=== PATIENT | male | born 2000 | race Caucasian/White ===

== ENCOUNTER 2020-06-15 07:42 | Emergency (ER) | payer OTHER ==
[~2020-06-15] VITALS: Ht 167.6 cm; Wt 62.0 kg
[2020-06-15 07:59] VITALS: BP 143/85
[2020-06-15] MEDS ORDERED: SUMAtriptan SUCC 6 MG/0.5 ML VIAL SQ ONE (08:15)
--- NOTE | 2020-06-15 08:36 | PHYS DOC ---
Past History Past Medical History: Asthma Past Surgical History: No Surgical History Alcohol Use: None Adult General Chief Complaint Chief Complaint: SORE THROAT HPI HPI Patient is a 19-year-old previously healthy male who presents to the emergency room complaining of left-sided neck pain that radiates into his ear. He states that it hurts worse when he tries to do swallow. He is able to swallow and talk without difficulty. He denies any kind of fever. He states he felt normal yesterday. He had something similar happen last week but it went away on its own after a few hours. He denies any cough or runny nose. He does have a migraine. He states he gets these on occasion. He states that the headache is behind his eyes and feels like pressure. Review of Systems Review of Systems Complete ROS is negative unless otherwise documented in HPI Current Medications Current Medications Current Medications Medications (Trade) Dose Ordered Sig/Maxim Start Time Stop Time Status Last Admin Dose Admin Sumatriptan Succinate (Imitrex) 6 mg 1X ONCE 06/15/20 08:15 06/15/20 08:16 DC 06/15/20 08:13 6 MG Allergies Allergies Allergies Coded Allergies Type Severity Reaction Last Updated Verified No Known Drug Allergies 06/15/20 No Physical Exam Physical Exam General: Awake, alert, NAD. Well Nourished, well hydrated. Cooperative HEENT: Atraumatic, EOMI, PERRL, airway patent, moist oral mucosa, mild erythema to the oropharynx without exudates, TMs normal bilaterally Neck: Supple, trachea midline, single left lymph node with mild swelling Respiratory: CTA bilaterally, normal effort, no wheezing/crackles CV: RRR, no murmur, cap refill <2 GI: Soft, nondistended, nontender, no masses MSK: No obvious deformities Skin: Warm, dry, intact Neuro: A&O x3, speech NL, sensory and motor grossly intact, no focal deficits Psych: Normal affect, normal mood, not suicidal or homicidal Current Patient Data Vital Signs Vital Signs Date Time Temp Pulse Resp B/P (MAP) Pulse Ox O2 Delivery O2 Flow Rate FiO2 06/15/20 07:59 97.8 77 18 143/85 (104) 100 Room Air EKG EKG [] Radiology/Procedures Radiology/Procedures [] Heart Score Risk Factors: Risk Factors: DM, Current or recent (<one month) smoker, HTN, HLP, family history of CAD, obesity. Risk Scores: Risk Factors: DM, Current or recent (<one month) smoker, HTN, HLP, family history of CAD, obesity. Course & Med Decision Making Course & Med Decision Making Pertinent Labs and Imaging studies reviewed. (See chart for details) Patient is 19-year-old male who comes to the emergency room complaining of sore throat and pain. Patient has a lymph node that is swollen in the area of his p ain. Ear appears normal. He has some mild erythema in the back of his oropharynx. Strep swab will be done. Strep was negative. This is likely allergic, nature and patient will be placed on Zyrtec-D. Patient's test results and vitals while in the ED were fully reviewed and discussed with the patient. Patient is stable and at this time does not need admission to the hospital. We have discussed strict return precautions and the importance of following up with their Primary Care Physician. Patient stated understanding and was given an opportunity to ask any questions. Patient is in agreement with plan. Ekaterina Disclaimer Dragon Disclaimer This electronic medical record was generated, in whole or in part, using a voice recognition dictation system. Departure Departure: Impression: Primary Impression: Acute pharyngitis Disposition: 01 DC HOME SELF CARE/HOMELESS Condition: STABLE Referrals: PCP,UNKNOWN (PCP) Patient Instructions: Allergic Rhinitis, Viral Pharyngitis Scripts Cetirizine Hcl/Pseudoephedrine (ZYRTEC-D TABLET) 1 Each Tab.er.12h 1 TAB PO BID for drainage, #20 TAB Prov: YOVANY DE DIOS MD 06/15/20 YOVANY DE DIOS MD Jun 15, 2020 08:36
[2020-06-15] MEDS ORDERED: CETI1TAB7 PO (08:54)
== END 2020-06-15 09:11 | disposition home or self-care (01) ==
LOC: ER 08:23
DX: J02.9 Acute pharyngitis, unspecified (principal); R51.9 Headache, unspecified; M54.2 Cervicalgia; J45.909 Unspecified asthma, uncomplicated
CPT/HCPCS: 87070; 87880; 96372; 99283; J3030